=== PATIENT | male | born 1960 | race Caucasian/White ===

== ENCOUNTER 2020-01-23 11:31 | Emergency (ER) | payer OTHER ==
[2020-01-23 11:49] VITALS: PULSE 62; TEMP 97.7; BMI 27.3
[2020-01-23] MEDS ORDERED: morphine SULFATE 4 MG/ML VIAL IVPUSH ONE (12:01)
--- NOTE | 2020-01-23 12:10 | PDOC ---
Attending Attestation - Resident Resident Name: CatrachoJs - ED Attending Attestation I have performed the following: I have examined & evaluated the patient, The case was reviewed & discussed with the resident, I agree w/resident's findings & plan, Exceptions are as noted - HPI HPI: 01/23/20 13:28 59YOM with h/o HTN who presents with daughter with left flank pain and bruising after mechanical trip/fall down ~3 concrete steps, suffering a blow to the left flank at the lower rib cage on his back, sustained roughly 2 hours prior to arrival in the ED. Endorses pain to the area worsening with deep breathing, also lightheadedness subsequent to the fall but no LOC. Denies hematuria. Not completely sure if he hit his head or not. Denies any other symptoms. - Physicial Exam PE: 01/23/20 13:30 GENERAL: Arrives walking in with daughter, minimal distress d/t pain but does appear stoic A: protecting airway B: equal bilateral breath sounds C: extremities wwp x4, 2+ radial and DP pulses bilaterally D: GCS 15, A/Ox4, moving all extremities HEENT: no obvious facial deformity, no cephalohematoma, no scalp laceration, no raccoon eyes, no proptosis, PERRLA, EOMI without pain, no nasal septal hematoma, no obvious CSF rhinorrhea, no epistaxis, no jaw malocclusion, no loose teeth, no olivier sign, no hemotympanum, no obvious CSF otorrhea CHEST WALL: mild ecchymosis in about a 2cm x6cm strip to left flank just inferior to the CVA, but there is no flail chest, no costal stepoff or deformity CARDIOVASCULAR: regular rhythm, normal S1S2, no MGR, capillary refill <2 seconds RESPIRATORY: symmetric chest expansion on inspiration, no increased WOB, no cyanosis ABDOMEN: abdomen soft, nondistendedd, nontender, pelvis stable EXTREMITIES: no obvious deformity, full ROM without pain NECK&BACK: no neck or back hematoma, no midline vertebral tenderness C/T/L spine, no spinal step-off or deformity, no paraspinous ttp CTL spine NEURO: CN II-XII grossly intact, 5/5 strength and intact sensation throughout, gait normal : no blood at the urethral meatus, normal external genitalia, +left CVA tenderness, no right CVA tenderness SKIN: there is minor bruising just superior to the left CVA as noted on chest wall exam, otherwise skin is warm and dry, no pallor, no lacerations, no significant abrasions - Medical Decision Making 01/23/20 13:32 59YOM with HTN p/w mechanical fall onto edge of concrete steps on left flank, now with left CVA ttp and ecchymosis. Initial Vital Signs Temp Pulse Resp BP Pulse Ox 97.7 F 62 18 110/80 100 01/23/20 11:32 01/23/20 11:32 01/23/20 11:32 01/23/20 11:32 01/23/20 11:32 Given the fall onto the edge of a concrete step and the developing ecchymosis, this patient needs to be treated as trauma patient. C/F retroperitoneal bleed, kidney lac/hematoma, liver lac/hematoma, etc. Also given that he had lightheadedness after the incident and cannot remember for sure if he hit his head, possible head trauma e.g. ICH. Trauma labs, EKG, and CTs ordered. Morphine given as the patient is quite uncomfortable. Provider Orders Category Date Time Status ABDOMEN & PELVIS CT WITH CONTR [CT] Stat CT Scan 01/23/20 12:[address] W/O CONTR [CT] Stat CT Scan 01/23/20 12:[address] WITH CONTRAST [CT] Stat CT Scan 01/23/20 12:[address] WITHOUT CONTRAST [CT] Stat CT Scan 01/23/20 12:[address] W/O CONTRAST [CT] Stat CT Scan 01/23/20 12:01 Ordered EKG [ELECTROCARDIOGRAM] [CARD] Stat Cardiology 01/23/20 12:10 Ordered EKG needed NOW Care 01/23/20 12:10 Completed CBC WITH DIFFERENTIAL Stat Lab 01/23/20 12:15 Completed COMP METABOLIC PANEL Stat Lab 01/23/20 12:15 Completed PT [PT/INR (PROTHROMBIN TIME)] Stat Lab 01/23/20 12:15 Completed UA ([facility] ONLY) Stat Lab 01/23/20 12:00 Ordered Morphine Sulfate Medication 01/23/20 12:21 Discontinued 4 mg .ROUTE .STK-MED ONE Morphine Sulfate Medication 01/23/20 12:01 Discontinued 4 mg IVPUSH ONCE ONE Medications Discontinued Medications Generic Name Dose Route Start Last Admin Trade Name Froy PRN Reason Stop Dose Admin Morphine Sulfate 4 mg 01/23/20 12:01 01/23/20 12:26 Morphine Sulfate IVPUSH 01/23/20 12:02 4 mg ONCE ONE Administration Morphine Sulfate Confirm 01/23/20 12:21 Morphine Sulfate Administered 01/23/20 12:22 Dose 4 mg .ROUTE .STK-MED ONE Lab Results WBC 6.7 K/mm3 (4.0-10.8) 01/23/20 12:15 RBC 4.86 M/mm3 (4.00-5.60) 01/23/20 12:15 Hgb 15.5 GM/dl (11.7-16.9) 01/23/20 12:15 Hct 45.3 % (35.4-49) 01/23/20 12:15 MCV 93.2 fl (80-96) 01/23/20 12:15 MCH 31.9 pg (25.7-33.7) 01/23/20 12:15 MCHC 34.2 g/dl (32.0-35.9) 01/23/20 12:15 RDW 12.0 % (11.9-15.9) 01/23/20 12:15 Plt Count 220 K/MM3 (134-434) 01/23/20 12:15 MPV 8.1 fl (7.5-11.1) 01/23/20 12:15 Absolute Neuts (auto) 3.9 K/mm3 01/23/20 12:15 Neutrophils % 59.3 % (42.8-82.8) 01/23/20 12:15 Lymphocytes % 32.2 % (8-40) 01/23/20 12:15 Monocytes % 4.4 % (3.8-10.2) 01/23/20 12:15 Eosinophils % 3.2 % (0-4.5) 01/23/20 12:15 Basophils % 0.9 % (0-2.0) 01/23/20 12:15 PT with INR 11.6 SEC (10.2-13.0) 01/23/20 12:15 INR 1.04 (0.82-1.09) 01/23/20 12:15 Sodium 137 mmol/L (136-145) 01/23/20 12:15 Potassium 3.3 mmol/L (3.5-5.1) L 01/23/20 12:15 Chloride 103 mmol/L (98-107) 01/23/20 12:15 Carbon Dioxide 25 mmol/L (21-32) 01/23/20 12:15 Anion Gap 9 MMOL/L (8-16) 01/23/20 12:15 BUN 18.0 mg/dl (7-18) 01/23/20 12:15 Creatinine 0.8 mg/dl (0.55-1.3) 01/23/20 12:15 Est GFR (CKD-EPI)AfAm 114.93 01/23/20 12:15 Est GFR (CKD-EPI)NonAf 99.16 01/23/20 12:15 Random Glucose 129 mg/dl (74-106) H 01/23/20 12:15 Calcium 8.8 mg/dl (8.5-10) 01/23/20 12:15 Total Bilirubin 2.3 mg/dl (0.2-1) H 01/23/20 12:15 AST 22 U/L (15-37) 01/23/20 12:15 ALT 22 U/L (13-61) 01/23/20 12:15 Alkaline Phosphatase 58 U/L (45-117) 01/23/20 12:15 Total Protein 6.9 g/dl (6.4-8.2) 01/23/20 12:15 Albumin 4.1 g/dl (3.4-5.0) 01/23/20 12:15 CT/CERVICAL SPINE CT W/O CONTR [id number] CT/THORACIC SPINE CT W/O CONTRAST Status post fall CT scan of the cervical spine without intravenous contrast Coronal and sagittal reconstruction images were obtained. There is straightening of the cervical spine. No gross fracture, subluxation or prevertebral soft tissue swelling is seen. No jumped facets are identified. C4-C5 minimal disc osteophyte complex without cord or nerve root impingement C5-C6 mild degenerative disc disease with mild mainly left paracentral disc osteophyte complex and mild left uncovertebral hypertrophy moderately narrowing medial aspect of the left foramen likely impinging left C6 nerve root C6-C7 minimal rig ht paracentral disc osteophyte complex without cord or nerve root impingement Visualized portion of the airway appears unremarkable. Small/subcentimeter bilateral lateral upper neck, jugular chain lymph nodes are present which are nonspecific. Lung windows at the thoracic i nlet appear unremarkable. IMPRESSION: Straightening of the cervical spine in satisfactory alignment without gross evidence of a fracture or subluxation. Degenerative disc disease and mild disc osteophyte complex, as described above likely slightly impinging left C6 nerve root as it enters the left foramen CT scan of the thoracic spine without intravenous contrast Contiguous axial scans were obtained followed with coronal and sagittal reconstruction images. There is mild dextroscoliosis of the thoracic. The height and alignment of the vertebral bodies appear unremarkable. No fracture or subluxation is identified. Intervertebral disc spaces are intact No gross paraspinal soft tissue abnormality is seen. Please refer to CT scan of the chest report done at the same time. IMPRESSION: Mild dextroscoliosis of the thoracic spine. No compression fracture or subluxation is identified. Intervertebral disc spaces are intact CT/ABDOMEN PELVIS CT WITH CONTR Patient Name: MOE CURRAN Accession Number: [id number] :[id number] Gender: Male Procedure: ABDOMEN PELVIS CT WITH CONTR INDICATION: 59 years Male trauma TECHNIQUE: CT scan of the abdomen/pelvis was performed from the lung bases through the symphysis pubis. Enteric contrast: Not administered IV contrast: 85 cc Omnipaque COMPARISON: No prior examinations are available for comparison. FINDINGS/DISCUSSION: Lung bases/heart/esophagus: Refer to concurrent chest CT report for complete findings above the diaphragm. Liver: Normal size and contour. No mass. The portal and hepatic veins are patent. No intra-or extrahepatic biliary ductal dilatation. Spleen: Unremarkable. Pancreas: Unremarkable. Gallbladder: Unremarkable. Adrenals: Unremarkable. Kidneys: No hydronephrosis. Nonobstructing calculi identified at the right midpole measuring approximately 0.7 cm and right renal pelvis measuring approximately 1.2 x 1.1 cm. A 2.0 cm exophytic simple cyst is identified at the right lower pole. Few additional scattered bilateral subcentimeter foci of low attenuation are also noted and also likely reflect simple cysts, but are too small to accurately characterize. Retroperitoneum: Unremarkable. Peritoneum: No free fluid or air. No lymphadenopathy. Bowel: Scattered diverticuli without evidence of diverticulitis. No evidence of obstruction. Normal appendix. No bowel wall thickening. Pelvis: No free pelvic fluid. No bulky iliac or inguinal adenopathy. Urinary bladder: Unremarkable. Prostate: Normal in size. Seminal vesicles: Symmetric. Bones: Subchondral cystic changes identified at the superior aspect of the right acetabulum. No lytic or blastic lesions. IMPRESSION: Two nonobstructing calculi identified within the right kidney, one of which measures approximately 0.7 cm at the right midpole and the other measures 1.2 cm at the right renal pelvis. Scattered diverticuli without evidence of diverticulitis. Refer to concurrent chest CT report for complete findings above the diaphragm. CT/CHEST CT WITH CONTRAST Patient Name: MOE CURRAN Accession Number: [id number] :[id number] Gender: Male Procedure: CHEST CT WITH CONTRAST CLINICAL INFORMATION: 59 years Male trauma TECHNIQUE: Axial images of the chest were acquired from the clavicles through the diaphragms with the administration of 95 cc Omnipaque intravenous contrast. Coronal and sagittal reformatted images were performed. COMPARISON: None. FINDINGS: Devices: None. Lungs and Airways: Bilateral dependent subsegmental atelectasis. No focal consolidation. Central a irways are patent. Pleura and Pleural Space: There is no pleural effusion, pleural mass, or pneumothorax. Neck base: No focal lesion. The thyroid gland appears normal. Lymph nodes and Mediastinum: No significant intrathoracic lymphadenopathy. No pathologically enlarged axillary or hilar adenopathy is detected. Cardiovascular: Cardiomegaly. Pulmonary vascularity is borderline prominent. No evidence of central pulmonary embolus. Assessment of the segmental and subsegmental pulmonary arterial branches is suboptimal due to technique. The aorta and main pulmonary artery are normal in caliber. Upper abdomen: Refer to concurrent abdomen and pelvis CT report for complete findings below the diaphragm. Musculoskeletal and Chest Wall: There is no fracture or other acute osseous pathology. IMPRESSION: No CT evidence of acute musculoskeletal injury. Bilateral dependent subsegmental atelectasis. Cardiomegaly with borderline prominent pulmonary vascularity. No evidence of central pulmonary embolus. Evaluation of the segmental and subsegmental pulmonary arterial branches is limited due to technique. Refer to concurrent abdomen and pelvis CT report for complete findings below the diaphragm. CT/HEAD CT WITHOUT CONTRAST Status post fall. Presyncope CT scan of the brain A noncontrast CT scan of the brain was performed. There is mild volume loss and ventricular prominence. Notes made of a small cavum septum verge. No mass lesion, gross acute infarct or intracranial hemorrhage is seen. Mild mucoperiosteal thickening in the ethmoid air cells. Otherwise, the visualized paranasal sinuses and mastoid air cells are well-aerated. The calvarium is intact. Impression: Mild volume loss without CT evidence of acute intracranial pathology. Correlate clinically to det ermine further evaluation and follow-up. Patient's pain returning after Morphine; Tylenol and Toradol and lido patch ordered. Patient is cleared from ED standpoint and dispo per resident note. He will f/u with his PCP or return for worsening symptoms or new emergency symptoms. Last Vital Signs Temp Pulse Resp BP Pulse Ox 97.7 F 62 18 118/78 100 01/23/20 15:32 01/23/20 11:32 01/23/20 15:32 01/23/20 15:32 01/23/20 15:32 Heart Score/ECG Review #1 01/23/20 12:25 Sinus rhythm, rate 56, normal axis and intervals, Q vave in III, no other ST-T changes Discharge - Discharge Information Problems reviewed: Yes Clinical Impression/Diagnosis: Diverticulosis, Renal cyst, Hypokalemia Fall down stairs Qualifiers: Encounter type: initial encounter Qualified Code(s): W10.8XXA - Fall (on) (from) other stairs and steps, initial encounter DDD (degenerative disc disease) Qualifiers: Spinal region: unspecified cervical region Qualified Code(s): M50.30 - Other cervical disc degeneration, unspecified cervical region Condition: Stable Disposition: HOME - Admission No - Follow up/Referral Referrals: [facility] [place] [facility] [place] [Provider Group] - Patient Discharge Instructions Patient Printed Discharge Instructions: DI for Concussion, DI for Flank Pain, DI for Thoracic Back Pain Additional Instructions: Please see your Primary Doctor within the next 48 hours. Take over the counter medications such as Tylenol and Ibuprofen alternating every 6 hours as needed for pain relief. Return to the ER for new or concerning symptoms. Thank you - Post Discharge Activity
--- NOTE | 2020-01-23 12:16 | PDOC ---
History of Present Illness - General Chief Complaint: Back Pain Stated Complaint: FALL Time Seen by Provider: 01/23/20 11:55 History Source: Patient Exam Limitations: No Limitations - History of Present Illness Initial Comments: 01/23/20 12:08 60 yo male pmh HTN presents to the ED after a mechanical fall with midline spine and left lateral back pain. Pt states he was walking up concrete steps when his boot accidentally touched the top step leading to a mechanical fall down 3 concrete steps. Pt admits to significant pain over the left flank and midline spine between T10-L1 with new bruising to the area and worse pain on inspiration. Pt also admits to feelings of presyncope after the fall but did not lose consciousness. Pt denies hitting his head, LOC, current WEI, changes in vision, neck pain/midline C spine tenderness, changes in sensation or strength in the ext, incontinence or retention of bowel or bladder, saddle anesthesia, N/V/F/C, CP, SOB, abdominal pain, changes in gait. Past History - Medical History Allergies/Adverse Reactions: Allergies Allergy/AdvReac Type Severity Reaction Status Date / Time No Known Allergies Allergy Unverified 01/23/20 11:33 Home Medications: Ambulatory Orders Hydrochlorothiazide 25 mg PO DAILY 01/23/20 Losartan Potassium [Cozaar -] 50 mg PO DAILY 01/23/20 COPD: No HTN: Yes - Psycho-Social/Smoking History Smoking History: Never smoked Have you smoked in the past 12 months: No Information on smoking cessation initiated: No - Substance Abuse Hx (Audit-C & DAST Scrn) How often the patient has a drink containing alcohol: Monthly or less Number of drinks the patient has on a typical day: 1 or 2 Score: In Men: 4 or > Positive; In Women: 3 or > Positive: 1 Screen Result (Pos requires Nsg. Audit-10AR): Negative In the last yr the pt used illegal drug/Rx for NonMed reason: No Score: Yes response is considered Positive: 0 Screen Result (Positive result requires Nsg. DAST-10): Negative Trauma Specific PMHX - Complaint Specific PMHX Back Injury: Yes Neck Injury: No Review of Systems - Review of Systems Constitutional: Yes: Symptoms Reported HEENTM: Yes: Symptoms Reported Respiratory: Yes: Symptoms reported Cardiac (ROS): Yes: Symptoms Reported ABD/GI: Yes: Symptoms Reported : Yes: Symptoms Reported Musculoskeletal: Yes: Symptoms Reported Integumentary: Yes: Symptoms Reported Neurological: Yes: Symptoms reported *Physical Exam - Vital Signs Last Vital Signs Temp Pulse Resp BP Pulse Ox 97.7 F 62 18 110/80 100 01/23/20 11:32 01/23/20 11:32 01/23/20 11:32 01/23/20 11:32 01/23/20 11:32 - Physical Exam General Appearance: Yes: Nourished, Appropriately Dressed HEENT: positive: EOMI, [place] Neck: positive: Supple. negative: Carotid bruit, Tender lateral, Tender midline Respiratory/Chest: positive: Lungs Clear, Normal Breath Sounds, Other (pain on inspiration with short breaths). negative: Respiratory Distress, Accessory Muscle Use, Rapid RR, Crackles, Rales, Rhonchi, Stridor, Wheezing Cardiovascular: positive: Regular Rhythm, Regular Rate, S1, S2. negative: Edema, JVD, Murmur Vascular Pulses: Dorsalis-Pedis (R): 4+, Doralis-Pedis (L): 4+ Gastrointestinal/Abdominal: positive: Flat, Soft. negative: Pulsatile Mass, Protuberent, Distended, Guarding, Rebound, Tenderness Rectal Exam: positive: other (Denies changes in sensation or strength in the ext (5/5 strength bilateral lower ext), incontinence or retention of bowel or bladder, saddle anesthesia. Deferred rectal after discussion with pt who agrees) Musculoskeletal: positive: Vertebral Tenderness (T10-L1), Other (Bruising and pain with light palpation). negative: CVA Tenderness Extremity: positive: Normal Capillary Refill, Normal Inspection, Normal Range of Motion, Pelvis Stable. 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 negative: Facial Droop, Numbness, Sensory Deficit, Confused, Disoriented ED Treatment Course - LABORATORY CBC & Chemistry Diagram: 01/23/20 12:15 01/23/20 12:15 - RADIOLOGY Radiology Studies Ordered: Category Date Time Status ABDOMEN & PELVIS CT WITH CONTR [CT] Stat CT Scan 01/23/20 12:[address] W/O CONTR [CT] Stat CT Scan 01/23/20 12:[address] WITH CONTRAST [CT] Stat CT Scan 01/23/20 12:[address] WITHOUT CONTRAST [CT] Stat CT Scan 01/23/20 12:[address] W/O CONTRAST [CT] Stat CT Scan 01/23/20 12:01 Ordered Medical Decision Making - Medical Decision Making 01/23/20 12:41 60 yo male pmh HTN presents to the ED after a mechanical fall with midline spine and left lateral back pain. Pt states he was walking up concrete steps when his boot accidentally touched the top step leading to a mechanical fall down 3 concrete steps. Pt admits to significant pain over the left flank and midline spine between T10-L1 with new bruising to the area and worse pain on inspiration. Pt also admits to feelings of presyncope after the fall but did not lose consciousness. Pt denies hitting his head, LOC, current WEI, changes in vision, neck pain/midline C spine tenderness, changes in sensation or strength in the ext, incontinence or retention of bowel or bladder, saddle anesthesia, N /V/F/C, CP, SOB, abdominal pain, changes in gait. Vitals stable due to signifacnt pain with bruising and tenderness to left flank and midline spine, trauma scan ordered (CT chest/A/P with cont) to r/o spleen/renal lac and fracture to spine Pt appears uncomfortable due top pain, 4 mg Morphine IV given 01/23/20 15:34 CT of head and neck, no acute changes related to injury CT Ab/P and chest show no fractures or active contrast extravasation CT spine neg for fracture Labs WNL except K 3.3. Will give PO K Pt reported improvement in pain after morphine however, after a few hours the pain came back. WIll give Toradol and a lidoderm patch , reassess 01/23/20 16:37 Pt reports improvement in symptoms after the medications Recomend continued Tylenol and NSAIDs over the counter and f/u with [facility] CT results printed for pt, no acute concerns on CT but should be f/u with outpatient primary care as discussed with patient Discharge - Discharge Information Problems reviewed: Yes Clinical Impression/Diagnosis: Diverticulosis, Renal cyst, Hypokalemia Fall down stairs Qualifiers: Encounter type: initial encounter Qualified Code(s): W10.8XXA - Fall (on) (from) other stairs and steps, initial encounter DDD (degenerative disc disease) Qualifiers: Spinal region: unspecified cervical region Qualified Code(s): M50.30 - Other cervical disc degeneration, unspecified cervical region Condition: Stable Disposition: HOME - Admission No - Follow up/Referral Referrals: [facility] [place] [facility] [place] [Provider Group] - Patient Discharge Instructions Patient Printed Discharge Instructions: DI for Concussion, DI for Flank Pain, DI for Thoracic Back Pain Additional Instructions: Please see your Primary Doctor within the next 48 hours. Take over the counter medications such as Tylenol and Ibuprofen alternating every 6 hours as needed for pain relief. Return to the ER for new or concerning symptoms. Thank you - Post Discharge Activity
[2020-01-23] MEDS ORDERED: morphine SULFATE 4 MG/ML VIAL ONE (12:21)
[2020-01-23 12:34] LABS: BASO % 0.9 % (0-2.0); EOS % 3.2 % (0-4.5); HEMATOCRIT 45.3 % (35.4-49); HEMOGLOBIN 15.5 GM/dl (11.7-16.9); LYMPH % 32.2 % (8-40); MCH 31.9 pg (25.7-33.7); MCHC 34.2 g/dl (32.0-35.9); MEAN CELL VOLUME 93.2 fl (80-96); MEAN PLT VOLUME 8.1 fl (7.5-11.1); MONO % 4.4 % (3.8-10.2); NEUT % 59.3 % (42.8-82.8); PLATELET COUNT 220 K/MM3 (134-434); RBC 4.86 M/mm3 (4.00-5.60); WHITE BLOOD COUNT 6.7 K/mm3 (4.0-10.8)
[2020-01-23 12:38] LABS: INR 1.04 (0.82-1.09); PROTHROMBIN TIME (PATIENT) 11.6 SEC (10.2-13.0)
[2020-01-23 12:42] LABS: ALBUMIN 4.1 g/dl (3.4-5.0); BILIRUBIN,TOTAL 2.3 mg/dl (0.2-1); CALCIUM 8.8 mg/dl (8.5-10); CREATININE 0.8 mg/dl (0.55-1.3); POTASSIUM 3.3 mmol/L (3.5-5.1); TOT PROT 6.9 g/dl (6.4-8.2)
[2020-01-23] MEDS ORDERED: ACETAMINOPHEN 325 MG TABLET (FP) PO ONE (15:25)
[2020-01-23] MEDS ORDERED: POTASSIUM CHLORIDE TABS 20 MEQ TABLET.ER (FP) PO ONE ×2 (15:25→15:32)
[2020-01-23] MEDS ORDERED: LIDOCAINE 5% TOPICAL PATCH TP ONE (15:26)
[2020-01-23] MEDS ORDERED: KETOROLAC TROMETHAMINE 30 MG/1 ML VIAL IVPUSH ONE (15:26)
[2020-01-23] MEDS ORDERED: KETOROLAC TROMETHAMINE 30 MG/1 ML VIAL ONE (15:31)
[2020-01-23] MEDS ORDERED: ACETAMINOPHEN 325 MG TABLET (FP) ONE (15:31)
[2020-01-23] MEDS ORDERED: LIDOCAINE 5% TOPICAL PATCH ONE (15:32)
[2020-01-23 15:46] VITALS: BP 118/78
[2020-01-23] MEDS ORDERED: LIDOCAINE PATCH REMOVAL MC SCH (22:00)
--- NOTE | 2020-01-24 15:00 | EKG ---
Test Reason : Blood Pressure : / mmHG Vent. Rate : 056 BPM Atrial Rate : 056 BPM P-R Int : 178 ms QRS Dur : 094 ms QT Int : 422 ms P-R-T Axes : 029 007 034 degrees QTc Int : 407 ms POOR DATA QUALITY, INTERPRETATION MAY BE ADVERSELY AFFECTED SINUS BRADYCARDIA OTHERWISE NORMAL ECG NO PREVIOUS ECGS AVAILABLE Confirmed by Brian Atkinson ([id number]) on 01/24/2020 2:59:46 PM Referred By: Confirmed By:Brian Atkinson
== END 2020-01-23 16:42 | disposition home or self-care (01) ==
LOC: FER 11:31 → EDBD 11:31 → FER 16:42
PROC: 3E033NZ Introduction of Analgesics, Hypnotics, Sedatives into Peripheral Vein, Percutaneous Approach (ICD-10-PCS; principal; 2020-01-23)
PROC: 3E033GC Introduction of Other Therapeutic Substance into Peripheral Vein, Percutaneous Approach (ICD-10-PCS; 2020-01-23)
DX: M50.30 Other cervical disc degeneration, unspecified cervical region (principal); K57.80 Diverticulitis of intestine, part unspecified, with perforation and abscess without bleeding; N28.1 Cyst of kidney, acquired
CPT/HCPCS: 36415; 70450-TC; 71260-TC; 72125-TC; 72128-TC; 74177-TC; 80053; 81003; 85025; 85610; 93005; 99285-25